=== PATIENT | female | born 1980 | race Two or more races ===

== ENCOUNTER 2017-10-11 00:23 | Emergency (ER) | payer SELFPAY ==
[~2017-10-11] VITALS: Ht 149.9 cm; Wt 97.5 kg
[2017-10-11 00:35] VITALS: BP 112/67
[2017-10-11] MEDS ORDERED: Morphine Sulfate 4mg/ml Inj (IV USE ONLY) IVP ONE ×2 (01:00→02:00)
--- NOTE | 2017-10-11 01:08 | Emergency Room Report ---
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 She presents with chief complaint of chest pain. Onset all day today. Midsternal area no radiation. She took aspirin this morning already. Took her nitroglycerin without relief. 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 She had a mitral valve replacement. She had DVT and PE because of prolonged hospitalization. She was on anticoagulation for 9 months. She is not on control by mouth. She had a hysterectomy already. She said she had an angiogram and her arteries were clean. Pain is 7 out of 10. No radiation. No diaphoresis. No dyspnea on exertion. Allergies: Coded Allergies: METOCLOPRAMIDE (Verified Allergy, Unknown, 10/11/17) PENICILLINS (Verified Allergy, Unknown, 10/11/17) Patient History Past Medical History: see triage record, old chart reviewed Past Surgical History: ale, hysterectomy Pertinent Family History: other Social History: Denies: smoking Last Menstrual Period: august 23, 2012 Now: No Immunizations: other Reviewed Nursing Documentation: PMH: Agreed; PSxH: Agreed Nursing Documentation-PMH Past Medical History: No Stated History Review of Systems Eye: Denies: eye pain, blurred vision ENT: Denies: ear pain, nose congestion, throat swelling Respiratory: Denies: cough, shortness of breath Cardiovascular: Reports: chest pain; Denies: palpitations Gastrointestinal: Denies: abdominal pain, diarrhea, nausea, vomiting Musculoskeletal: Denies: back pain, joint pain Skin: Denies: rash Neurological: Denies: headache, numbness Endocrine: Denies: increased thirst, increased urine Hematologic/Lymphatic: Denies: easy bruising All Other Systems: negative except mentioned in HPI Physical Exam Vital Signs Date Time Temp Pulse Resp B/P (MAP) Pulse Ox O2 Delivery O2 Flow Rate FiO2 10/11/17 00:25 98.6 114 16 112/67 96 Room Air 98.6 vitals showed tachycardia Sp02 EP Interpretation: reviewed, normal General Appearance: well appearing, no apparent distress, alert, obese Head: normocephalic, atraumatic Eyes: bilateral eye PERRL, bilateral eye EOMI ENT: hearing grossly normal, normal pharynx Neck: full range of motion, supple, no meningismus Respiratory: chest non-tender, lungs clear, normal breath sounds Cardiovascular #1: regular rate, rhythm, no murmur Gastrointestinal: normal bowel sounds, non tender, no mass, no organomegaly, no bruit, non-distended Musculoskeletal: back normal, gait/station normal, normal range of motion Psychiatric: mood/affect normal Skin: warm/dry Medical Decision Making Diagnostic Impression: Primary Impression: Chest pain Qualified Codes: R07.9 - Chest pain, unspecified ER Course She presents with chest pain. Atypical in nature. No evidence of ACS, dissection, pneumonia to name a few. D-dimer slightly elevated and patient got a CT scan. Patient does not want to wait any longer and wanted to leave AMA. I try to convince her to stay for a few more minutes for the CT results. She said she has to take care of her acute at home so she is willing to leave AMA. I will call her if CT is positive. She promised to come back if there is any problem. Lab Results Impression labs unremarkable EKG Diagnostic Results Rate: normal Rhythm: NSR ST Segments: other - NSST changes Rhythm Strip Diag. Results Rhythm Strip Time: 01:08 EP Interpretation: yes Rate: 95 Rhythm: NSR, no PVC's, no ectopy Chest X-Ray Diagnostic Results Chest X-Ray Diagnostic Results : Chest X-Ray Ordered: Yes # of Views/Limited/Complete: 1 View Indication: Chest Pain EP Interpretation: Yes Interpretation: no consolidation, no effusion, no pneumothorax, no acute cardiopulmonary disease Impression: No acute disease Electronically Signed by: Nicholas Nolan MD Last Vital Signs Date Time Temp Pulse Resp B/P (MAP) Pulse Ox O2 Delivery O2 Flow Rate FiO2 10/11/17 00:25 98.6 114 16 112/67 96 Room Air 98.6 Status: improved Disposition: AGAINST MEDICAL ADVICE Condition: Stable Patient Instructions: Nonspecific Chest Pain NICHOLAS NOLAN M.D. Oct 11, 2017 01:08
[2017-10-11 01:23] LABS: BASOPHILS % (AUTO) 0.8 % (0.0-2.0); EOSINOPHILS % (AUTO) 3.1 % (0.0-3.0); HEMATOCRIT 36.7 % (37.0-47.0); HEMOGLOBIN 11.2 G/DL (12.0-16.0); MEAN CORPUSCULAR VOLUME 76 FL (80-99); MONOCYTES % (AUTO) 8.5 % (1.0-10.0); NEUTROPHILS % (AUTO) 61.6 % (45.0-75.0); PLATELET COUNT 433 K/UL (150-450); RED CELL DISTRIBUTION WIDTH 16.4 % (11.6-14.8); WHITE BLOOD COUNT 10.7 K/UL (4.8-10.8)
[2017-10-11 01:33] LABS: ANION GAP 10 mmol/L (5-15); BLOOD UREA NITROGEN 7 mg/dL (7-18); CALCIUM 9.2 MG/DL (8.5-10.1); CARBON DIOXIDE 26 MMOL/L (21-32); CHLORIDE 105 MMOL/L (98-107); CREATININE 0.8 MG/DL (0.55-1.30); POTASSIUM 3.4 MMOL/L (3.5-5.1); SODIUM 141 MMOL/L (136-145)
[2017-10-11 01:34] LABS: INR 0.9 (0.9-1.1)
[2017-10-11 01:44] LABS: ALANINE AMINOTRANSFERASE 54 U/L (12-78); ALBUMIN 3.6 G/DL (3.4-5.0); ALBUMIN/GLOBULIN RATIO 0.9 (1.0-2.7); ALKALINE PHOSPHATASE 152 U/L (46-116); ASPARTATE AMINO TRANSFERASE 50 U/L (15-37); BILIRUBIN,TOTAL 0.4 MG/DL (0.2-1.0); CKMB 0.7 NG/ML (0.0-3.6); CREATINE KINASE 69 U/L (26-308)
[2017-10-11] MEDS ORDERED: Isovue-370 150ml vial INJ PRN (02:00)
[2017-10-11] MEDS ORDERED: DiphenhydrAMINE 50mg/ml Inj ONE (02:32)
[2017-10-11 02:44] VITALS: BP 123/65
[2017-10-11] MEDS ORDERED: DiphenhydrAMINE 50mg/ml Inj IVP ONE (02:45)
[2017-10-11 03:13] VITALS: BP 123/65
[2017-10-11 03:37] LABS: BILIRUBIN, URINE NEGATIVE (NEGATIVE); COLOR,URINE PALE YELLOW; GLUCOSE, URINE (UA) NEGATIVE (NEGATIVE); KETONES,URINE NEGATIVE (NEGATIVE); LEUKOCYTE ESTERASE ,URINE 3+ (NEGATIVE); NITRITE,URINE NEGATIVE (NEGATIVE); PH,URINE 6 (4.5-8.0); PROTEIN,URINE NEGATIVE (NEGATIVE); UROBILINOGEN,URINE NORMAL MG/DL (0.0-1.0)
[2017-10-11 03:44] LABS: APPEARANCE,URINE CLOUDY
--- NOTE | 2017-10-11 10:47 | Diagnostic Imaging Report ---
Indication: Chest pain Technique: One view of the chest Comparison: none Findings: Lungs and pleural spaces are clear. Heart size is normal Impression: No acute process
--- NOTE | 2017-10-11 10:53 | Diagnostic Imaging Report ---
ndication: Chest pain, shortness of breath Technique: IV administration nonionic contrast. Spiral acquisitions obtained from the lung bases to the lung apices. Multiplanar and 3-D reconstructions were generated. Total dose length product 911.95 mGycm. CTDIvol(s) 40.23 mGy. Dose reduction achieved using automated exposure control Comparison: none Findings: There is adequate opacification of the pulmonary arteries. No intraluminal filling defects or other findings to suggest acute pulmonary embolus demonstrated. No evidence of thoracic aortic aneurysm or dissection. Normal caliber pulmonary arteries. No evidence of right ventricular dilatation. The heart is mildly enlarged. The lungs demonstrate diffuse groundglass opacity bilaterally. No dense consolidation. No masses or nodules. No pleural effusions. No pericardial effusion. There is a 2.8 x 2.3 cm enhancing heterogeneous mass in the anterior upper mediastinum which appears to be separate from the thyroid. A few tiny subcentimeter nodules are seen within the thyroid isthmus. No other mediastinal or hilar mass or adenopathy. No axillary or chest wall mass or adenopathy. The bones are unremarkable The included upper abdominal anatomy demonstrates multiple cysts within the liver Impression: Negative for evidence of acute pulmonary embolus or other acute thoracic vascular pathology Mild cardiomegaly Diffuse pulmonary parenchymal groundglass opacity, nonspecific as regards etiology, could represent pulmonary edema given the above 2.8 x 2.3 cm mass in the anterior upper mediastinum, separate from the thyroid. Differential considerations include thymoma, teratoma, ectopic thyroid tissue, lymphadenopathy. Consider tissue sampling Multiple hepatic cysts incidentally noted This agrees with the preliminary interpretation provided overnight by [facility]. The CT scanner at [facility] is accredited by the [employer] and the scans are performed using protocols designed to limit radiation exposure to as low as reasonably achievable to attain images of sufficient resolution adequate for diagnostic evaluation.
--- NOTE | 2017-10-11 14:53 | Cardiology Report ---
APPROVED REPORT EKG Measurement Heart [id number] Normal sinus rhythm Nonspecific T wave abnormality Abnormal ECG
== END 2017-10-11 03:13 | disposition left against medical advice (07) ==
LOC: EMR 02:03
DX: R07.9 Chest pain, unspecified (principal); Z90.49 Acquired absence of other specified parts of digestive tract; Z90.710 Acquired absence of both cervix and uterus; Z88.0 Allergy status to penicillin; Z88.8 Allergy status to other drugs, medicaments and biological substances; I25.2 Old myocardial infarction; Z86.711 Personal history of pulmonary embolism; Z86.718 Personal history of other venous thrombosis and embolism; Z95.2 Presence of prosthetic heart valve
CPT/HCPCS: 36415; 71045; 71275; 80053; 81003; 82550; 82553; 84484; 85025; 85379; 85610; 85730; 87086; 93005; 96374; 96375; 96376; 99285; J1200; J2270; J2405; Q9967